=== PATIENT | male | born 1950 | race Caucasian/White ===

== ENCOUNTER → 2018-09-24 20:43 | Outpatient (CLI) | payer MEDICARE, OTHER, SELFPAY ==
[2018-09-23 17:20] VITALS: BMI 30.6
[2018-09-24 21:19] LABS: Cholesterol 190 mg/dL (200); High Density Lipoprotein 36 mg/dL; Triglycerides 204 mg/dL; Very Low Density Lipoprotein 41 mg/dL (5-40)
== END ==
PROVIDERS: Visit Provider Nurse Practitioner
DX: I10 Essential (primary) hypertension (principal); E03.9 Hypothyroidism, unspecified
CPT/HCPCS: 80061

== ENCOUNTER → 2019-06-23 15:12 | Outpatient (CLI) | payer MEDICARE, OTHER, SELFPAY ==
[2019-06-23 12:11] VITALS: BMI 30.3
[2019-06-23 16:29] LABS: BNP,B-Type NATRIURETIC PEPTIDE 17.4 pg/mL (0-100)
== END ==
PROVIDERS: Referring Provider Internal Medicine Cardiovascular Disease; Visit Provider Internal Medicine Cardiovascular Disease
DX: R06.00 Dyspnea, unspecified (principal)
CPT/HCPCS: 36415; 83880

== ENCOUNTER → 2019-07-09 12:21 | Outpatient (CLI) | payer MEDICARE, OTHER, SELFPAY ==
[2019-06-23 12:11] VITALS: BMI 30.3
--- NOTE | 2019-07-09 12:24 | ECHOD_ITS ---
Reason For Study: DYSPNEA Procedure This was a 2D Doppler, Color Flow transthoracic echocardiogram. Exam performed in department. Left Ventricle Normal LV size. Left ventricular systolic function is normal. The estimated ejection fraction is 55 %. Stage 1 diastolic dysfunction. No regional wall motion abnormalities noted. Right Ventricle Normal right ventricle. Normal systolic function. Atria Normal left atrium. Normal right atrium. Mitral Valve Normal mitral valve. Tricuspid Valve Normal tricuspid valve. Mild tricuspid valve insufficiency. Pulmonary artery systolic pressure is 26 mmHg. Aortic Valve Normal aortic valve. Trisinus/trileaflet aortic valve. Pulmonic Valve Normal pulmonic valve. Great Vessels Normal aortic root. The pulmonary artery is normal size. Normal inferior vena cava. Pericardium/Pleural No pericardial effusion. MMode/2D Measurements & Calculations LVIDd: 5.7 cm IVSd: 0.85 cm Ao root diam: 3.8 cm LVIDs: 3.3 cm LVPWd: 0.86 cm RVDd: 4.1 cm FS: 41.4 % LAV(MOD-bp): 58.9 ml LA A4 area: 20.7 cm2 LA dimension(2D): 4.1 cm LAV(MOD-bp) Indexed: 25.6 ml/m2 LAV(MOD-sp2): 57.3 ml LAV(MOD-sp4): 57.4 ml RA A4 area: 14.1 cm2 Time Measurements MV dec time: 0.32 sec Doppler Measurements & Calculations MV E max karlo: 61.0 cm/sec Lat Peak E' Karlo: 7.3 cm/sec Med Peak E' Karlo: 5.0 cm/sec MV A max karlo: 72.6 cm/sec E/E' lat: 8.4 E/E' med: 12.3 MV E/A: 0.84 Ao V2 max: 113.4 cm/sec LV V1 max: 95.8 cm/sec TR max karlo: 238.9 cm/sec Ao max P.1 mmHg LV V1 max P.7 mmHg TR max P.9 mmHg Interpretation Summary Normal LV size. Left ventricular systolic function is normal. The estimated ejection fraction is 55 %. Stage 1 diastolic dysfunction. Mild tricuspid valve insufficiency. Ordering Physician: Kendell Sparks Referring Physician: BRITTANIE ANDUJAR Performed By: Valerie Caldera, TOBY, RVT
== END ==
PROVIDERS: Referring Provider Internal Medicine Cardiovascular Disease; Visit Provider Internal Medicine Cardiovascular Disease
DX: R07.89 Other chest pain (principal); R06.02 Shortness of breath; R06.00 Dyspnea, unspecified
CPT/HCPCS: 93306

== ENCOUNTER → 2019-07-21 | Outpatient (CLI) | payer MEDICARE, OTHER, SELFPAY ==
[2019-07-21 06:06] VITALS: BMI 30.3
[2019-07-21 10:17] LABS: Absolute Lymphocyte Count 1.33 X10^3/uL (0.83-4.51); Absolute Neutrophil Count 2.1 X10^3/uL (2.0-7.7); Basophil# 0.03 X10^3/uL; Basophil% 0.7 % (0-1); Eosinophils% 4.9 % (0-5); Hematocrit 46.4 % (40-54); Hemoglobin 15.1 g/dL (13.0-16.5); Lymphocyte # 1.33 X10^3/ul (4.0); Lymphocyte % 32.4 % (19-41); Mean Corp Hgb Conc 32.5 g/dL (32-36); Mean Corpuscular Hgb 27.9 pg (27.0-32.0); Mean Corpuscular Volume 85.8 fL (80-94); Mean Platelet Vol. 9.1 fl (6.2-12.0); Monocyte# 0.47 X10^3/uL; Monocyte% 11.4 % (0-10); NRBC Flagged by Analyzer 0 % (0-5); Neutrophil # 2.08 X10^3/uL (2.7-7.7); Neutrophil % 50.6 % (47-70); Platelet Count 192 K/mm3 (150-450); RBC Distribution Width CV 14.1 % (11.6-14.6); Red Blood Count 5.41 M/mm3 (4.6-6.2); White Blood Count 4.1 K/mm3 (4.4-11.0)
[2019-07-24 04:06] LABS: Alternaria alternata 5.16 kU/L (Class IV); Bermuda Grass <0.10 kU/L (Class 0); Bluegrass, Kentucky 0.45 kU/L (Class I); Cat Hair/Dander, Standard 0.83 kU/L (Class II); D farinae Mite 0.26 kU/L (Class 0/I); D pteronyssinus 0.26 kU/L (Class 0/I); Dog Epithelia 0.11 kU/L (Class 0/I); Elm, American White <0.10 kU/L (Class 0); Oak, White <0.10 kU/L (Class 0); Plantain, English <0.10 kU/L (Class 0); Ragweed, Short/Common 0.16 kU/L (Class 0/I)
[2019-07-24 13:17] LABS: Mouse Urine 0.18 kU/L (Class 0/I)
[2019-07-24 20:07] LABS: Aspirgillus flavus Negative (Neg:<1:1); Aspirgillus fumigatus Negative (Neg:<1:1); Aspirgillus niger Negative (Neg:<1:1)
[2019-07-24 21:45] LABS: Immunoglobulin E 263 IU/mL (6-495)
== END | disposition home or self-care (01) ==
PROVIDERS: Referring Provider Internal Medicine Critical Care Medicine; Visit Provider Internal Medicine Critical Care Medicine
DX: J45.909 Unspecified asthma, uncomplicated (principal)
CPT/HCPCS: 36415; 82785; 85025; 86003; 86606

== ENCOUNTER → 2019-08-20 | Outpatient (CLI) | payer MEDICARE, OTHER, SELFPAY ==
[2019-07-21 06:06] VITALS: BMI 30.3
[2019-07-27 11:02] VITALS: BMI 30.9
--- NOTE | 2019-08-22 09:47 | PFT ---
INTRODUCTION: The patient is a 69-year-old male that presents for pulmonary function studies secondary to a diagnosis of asthma. Respiratory therapy reports good patient effort. Bronchodilators were used during testing. INTERPRETATION: Forced expiration spirometry demonstrates the presence of a moderately severe large airways obstructive ventilatory defect. There was a significant response to aerosolized bronchodilators. Spirograms are of good quality and plateau gradually indicating slow emptying of the lungs. Body plethysmography was performed and reveals a decreased TLC to 4.58 L, 63% of predicted, indicative of a moderate restrictive ventilatory impairment. The remainder of the lung volumes are symmetrically reduced. Diffusing capacity by single breath CO is within normal limits. IMPRESSION: Partially reversible moderately severe mixed ventilatory defect with preserved diffusing capacity.
== END | disposition home or self-care (01) ==
LOC: PSN 10:51
PROVIDERS: Referring Provider Internal Medicine Critical Care Medicine; Visit Provider Internal Medicine Critical Care Medicine
DX: J45.909 Unspecified asthma, uncomplicated (principal)
CPT/HCPCS: 94060; 94726; 94729

== ENCOUNTER → 2020-04-07 | Outpatient (CLI) | payer MEDICARE, OTHER, SELFPAY ==
[2020-04-07 15:07] VITALS: BMI 30.3
[2020-04-07 21:26] LABS: Absolute Lymphocyte Count 1.63 X10^3/uL (0.83-4.51); Absolute Neutrophil Count 3.1 X10^3/uL (2.0-7.7); Basophil# 0.06 X10^3/uL; Basophil% 1.1 % (0-1); Eosinophil# 0.22 X10^3/uL; Eosinophils% 3.9 % (0-5); Hematocrit 45.4 % (40-54); Hemoglobin 14.6 g/dL (13.0-16.5); Lymphocyte # 1.63 X10^3/ul (4.0); Lymphocyte % 29.3 % (19-41); Mean Corp Hgb Conc 32.2 g/dL (32-36); Mean Corpuscular Hgb 28.2 pg (27.0-32.0); Mean Corpuscular Volume 87.6 fL (80-94); Mean Platelet Vol. 9.6 fl (6.2-12.0); Monocyte# 0.57 X10^3/uL; Monocyte% 10.2 % (0-10); NRBC Flagged by Analyzer 0 % (0-5); Neutrophil # 3.09 X10^3/uL (2.7-7.7); Neutrophil % 55.5 % (47-70); Platelet Count 226 K/mm3 (150-450); RBC Distribution Width CV 13.8 % (11.6-14.6); RBC Distribution Width SD 44.4 fl (35.1-43.9); Red Blood Count 5.18 M/mm3 (4.6-6.2); White Blood Count 5.6 K/mm3 (4.4-11.0)
[2020-04-07 21:49] LABS: ALB/GLOB Ratio 1.1 RATIO (0.9-2.4); AST(SGOT) 30 U/L (15-37); Alanine Aminotransfer ALT/SGPT 28 U/L (16-61); Albumin, Serum 3.9 g/dL (3.2-5.0); Alkaline Phosphatase 94 U/L (45-117); Anion Gap 6 (5-15); BUN 21 mg/dL (7-18); Calcium,Total 9.3 mg/dL (8.5-10.1); Chloride 106 mmol/L (98-107); Cholesterol 215 mg/dL (200); EST Glomerular Filtration Rate 53 mL/min (>60); Est Glom Filt Rate - Afr Amer 65 mL/min (>60); Globulin 3.6 g/dL (2.2-4.2); Glucose 96 mg/dL (74-106); High Density Lipoprotein 49 mg/dL; Potassium 3.9 mmol/L (3.5-5.1); Protein, Total 7.5 g/dL (6.4-8.2); Sodium Level 140 mmol/L (136-145); Triglycerides 172 mg/dL; Very Low Density Lipoprotein 34 mg/dL (5-40)
== END | disposition home or self-care (01) ==
PROVIDERS: Referring Provider Nurse Practitioner; Visit Provider Nurse Practitioner
DX: I10 Essential (primary) hypertension (principal); N42.9 Disorder of prostate, unspecified; Z12.5 Encounter for screening for malignant neoplasm of prostate
CPT/HCPCS: 80053; 80061; 84153; 85025; G0103

== ENCOUNTER → 2020-05-25 | Outpatient (CLI) | payer MEDICARE, OTHER, SELFPAY ==
[2020-05-30 09:08] LABS: PSA, Free % 20.6 % (.); PSA, Total Ultrasensitive 10.7 ng/mL (0.0-4.0)
== END | disposition home or self-care (01) ==
PROVIDERS: PCP Nurse Practitioner; Referring Provider Nurse Practitioner; Visit Provider Nurse Practitioner
DX: N42.9 Disorder of prostate, unspecified (principal); R97.20 Elevated prostate specific antigen [PSA]
CPT/HCPCS: 84153; 84154; 87086

== ENCOUNTER → 2020-08-16 | Outpatient (CLI) | payer MEDICARE, OTHER, SELFPAY ==
[2020-08-18 15:47] LABS: PSA, Free 2.12 ng/mL; PSA, Free % 19.4 % (.); PSA, Total Ultrasensitive 10.9 ng/mL (0.0-4.0)
== END | disposition home or self-care (01) ==
PROVIDERS: PCP Nurse Practitioner; Referring Provider Nurse Practitioner; Visit Provider Nurse Practitioner
DX: N42.9 Disorder of prostate, unspecified (principal)
CPT/HCPCS: 84153; 84154

== ENCOUNTER → 2020-09-29 | Outpatient (CLI) | payer MEDICARE, OTHER, SELFPAY ==
[2020-08-16 12:43] VITALS: BMI 30.7
--- NOTE | 2020-09-29 | IMM_PTH ---
PATIENT: REBEL BURT Sr. LOC: [facility] U#:[id number] AGE/SX: 70/M ROOM: RE09/29/[address]: Dr. Will Olguin MD : 1950 BED: DIS: 09/29/2020 SPEC #: [id number] RECD: 10/03/20 12:54 STATUS: TOYIN REQ #: [id number] TACO: 09/29/20 00:[address]: Will Olguin DEPT: IMMUNOHISTOCHEMISTRY RECD BY: Kate García ENTERED: 10/03/20 12:56 SP TYPE: IMMUNO OTHR DR: Marlene Mathur, CRITICAL CARE UNIT MANAGER-C Tissues: C - PROSTATE RIGHT E - PROSTATE LEFT F - PROSTATE LEFT Procedures: 34BE12 (add) P40 (add) 34BE12 (initial) PHYSICIAN & INSTITUTION [place] [id number] SPECIMEN INFORMATION: Tissue Source: C - Right base, E - Left mid, F - Left base Clinical Info: R97.2 Specimen Number: [id number] C, E & F CPT code: 10036, 71730 x5 METHODOLOGY: Deparaffinized sections of prefer/formalin-fixed tissue or PAP/DQ stained slides are incubated with monoclonal/polyclonal antibodies/oligonucleotide probes. Localization is made via biotin free immunoperoxidase method. Appropriate controls are performed and reacted as expected. Results on target cell population are indicated in the following table: RESULTS: ANTIBODY / CLONE RESULT Block C 34BE12 (34BE12) positive P40 (BC28) positive Block E 34BE12 (34BE12) positive P40 (BC28) positive Block F 34BE12 (34BE12) positive P40 (BC28) positive These tests were developed and their performance characteristics determined by [facility]. They may not have been cleared or approved by the U.S. Food and Drug Administration. The FDA has determined that such clearance or approval is not necessary. The above immunohistochemical/dualISH markers are ordered and reviewed by the Pathologist. INTERPRETATION: C. Right prostate, base, core biopsy: Benign prostatic tissue. E. Left prostate, mid, core biopsy: Benign prostatic tissue. F. Left prostate, base, core biopsy: Benign prostatic tissue. AM:tawanna 10/04/2020
--- NOTE | 2020-09-29 08:00 | PROSBIL_PTH ---
PATIENT: [facility]BEL [facility]UR[facility] U[id number] AGE/SX: 70/M ROOM: RE09/29/[address]: Dr. Will Olguin MD : 1950 BED: DIS: 09/29/2020 SPEC #: [id number] RECD: 09/29/20 16:53 STATUS: TOYIN REMarita #: [id number] TACO: 09/29/20 08:[address]: Will Olguin DEPT: SURGICAL PATHOLOGY RECD BY: Keshia Rust ENTERED: 09/30/20 08:34 SP TYPE: PROST BX TONY DR: Marlene Mathur, SOFTBALL COACH-C Tissues: A - PROSTATE RIGHT B - PROSTATE RIGHT C - PROSTATE RIGHT D - PROSTATE LEFT E - PROSTATE LEFT F - PROSTATE LEFT Procedures: PROSTATE BX HEADER OPERATION: Prostate biopsy PRE-OP DIAGNOSIS: R97.2 TISSUE SUBMITTED: A - Right apex, B - Right mid, C - Right base, D - Left apex, E - Left mid, F - Left base MICROSCOPIC DIAGNOSIS A. Right prostate, apex, core biopsy: Mild chronic inflammation and glandular atrophy. B. Right prostate, mid, core biopsy: Glandular atrophy and minimal chronic inflammation. C. Right prostate, base, core biopsy: Glandular atrophy and mild chronic inflammation. See comment. D. Left prostate, apex, core biopsy: Focal glandular atrophy. Mild chronic inflammation. E. Left prostate, mid, core biopsy: Glandular atrophy and mild chronic inflammation. See comment. F. Left prostate, base, core biopsy: Glandular atrophy and minimal chronic inflammation. See comment. SJ:rg 10/03/2020 COMMENT C, E & F - Immunohistochemistry ([id number]) supports the above diagnosis. MICROSCOPIC DESCRIPTION Slides are reviewed. GROSS DESCRIPTION A - Received is one container designated prostate, right apex. The specimen consists of two elongated fragments of light higuera-white soft tissue measuring 0.7 and 1 cm in length and 0.1 cm in diameter. The specimen is totally submitted in one cassette. B - Received is one container designated prostate, right mid. The specimen consists of three elongated fragments of light higuera-white soft tissue measuring 0.5 to 1 cm in length and 0.1 cm in diameter. The specimen is totally submitted in one cassette. C - Received is one container designated prostate, right base. The specimen consists of two elongated fragments of light higuera-white soft tissue measuring 1 and 1.5 cm in length and 0.1 cm in diameter. The specimen is totally submitted in one cassette. D - Received is one container designated prostate, left apex. The specimen consists of two elongated fragments of light higuera-white soft tissue each measuring 1.5 cm in length and 0.1 cm in diameter. The specimen is totally submitted in one cassette. E - Received is one container designated prostate, left mid. The specimen consists of two elongated fragments of light higuera-white soft tissue each measuring 1.5 cm in length and 0.1 cm in diameter. The specimen is totally submitted in one cassette. F - Received is one container designated prostate, left base. The specimen consists of two elongated fragments of light higuera-white soft tissue measuring 1.2 and 1.5 cm in length and 0.1 cm in diameter. The specimen is totally submitted in one cassette. / SJ:rg 09/30/20 TC:4 CPT: G0146
== END | disposition home or self-care (01) ==
LOC: LABSPEC 09-30 08:23
PROVIDERS: PCP Nurse Practitioner; Referring Provider Urology; Visit Provider Urology
DX: R97.20 Elevated prostate specific antigen [PSA] (principal)
CPT/HCPCS: 88305; 88341; 88342; G0416

== ENCOUNTER → 2021-04-03 | Outpatient (CLI) | payer MEDICARE, OTHER, SELFPAY ==
[2021-04-03 22:20] LABS: Absolute Lymphocyte Count 1.64 X10^3/uL (0.83-4.51); Absolute Neutrophil Count 3.5 X10^3/uL (2.0-7.7); Basophil# 0.04 X10^3/uL; Basophil% 0.7 % (0-1); Eosinophil# 0.18 X10^3/uL; Hematocrit 44.1 % (40-54); Hemoglobin 14.6 g/dL (13.0-16.5); Lymphocyte # 1.64 X10^3/ul (0.83-4.51); Lymphocyte % 27.7 % (19-41); Mean Corp Hgb Conc 33.1 g/dL (32-36); Mean Corpuscular Hgb 28.5 pg (27.0-32.0); Mean Corpuscular Volume 86.1 fL (80-94); Mean Platelet Vol. 9.8 fl (6.2-12.0); Monocyte# 0.59 X10^3/uL; Monocyte% 9.9 % (0-10); NRBC Flagged by Analyzer 0 % (0-5); Neutrophil # 3.47 X10^3/uL (2.7-7.7); Neutrophil % 58.5 % (47-70); Platelet Count 212 K/mm3 (150-450); RBC Distribution Width CV 14.6 % (11.6-14.6); RBC Distribution Width SD 46.2 fl (35.1-43.9); Red Blood Count 5.12 M/mm3 (4.6-6.2); White Blood Count 5.9 K/mm3 (4.4-11.0)
[2021-04-03 22:21] LABS: ALB/GLOB Ratio 1.1 RATIO (0.9-2.4); AST(SGOT) 27 U/L (15-37); Alanine Aminotransfer ALT/SGPT 24 U/L (16-61); Albumin, Serum 3.9 g/dL (3.2-5.0); Alkaline Phosphatase 82 U/L (45-117); Anion Gap 9 (5-15); BUN 21 mg/dL (7-18); BUN/Creat Ratio 14.6 RATIO (10-20); Calcium,Total 9.3 mg/dL (8.5-10.1); Chloride 107 mmol/L (98-107); Cholesterol 224 mg/dL (200); Creatinine, Serum 1.44 mg/dL (0.70-1.30); EST Glomerular Filtration Rate 52 mL/min (>60); Est Glom Filt Rate - Afr Amer 62 mL/min (>60); Globulin 3.7 g/dL (2.2-4.2); Glucose 95 mg/dL (74-106); High Density Lipoprotein 49 mg/dL; Potassium 3.8 mmol/L (3.5-5.1); Protein, Total 7.6 g/dL (6.4-8.2); Sodium Level 140 mmol/L (136-145); Triglycerides 116 mg/dL; Very Low Density Lipoprotein 23 mg/dL (5-40)
[2021-04-04 12:04] LABS: Thyroid Stim Hormone (TSH) 2.77 uIU/mL (0.358-3.74)
[2021-04-05 15:42] LABS: PSA, Free 2.38 ng/mL; PSA, Free % 20.5 % (.); PSA, Total Ultrasensitive 11.6 ng/mL (0.0-4.0)
== END | disposition home or self-care (01) ==
PROVIDERS: PCP Nurse Practitioner; Visit Provider Nurse Practitioner
DX: J45.50 Severe persistent asthma, uncomplicated (principal); I10 Essential (primary) hypertension; N42.9 Disorder of prostate, unspecified; E03.9 Hypothyroidism, unspecified
CPT/HCPCS: 80053; 80061; 84153; 84154; 84443; 85025

== ENCOUNTER → 2022-05-22 | Outpatient (CLI) | payer MEDICARE, OTHER, SELFPAY ==
[2022-05-22 22:01] LABS: Absolute Lymphocyte Count 1.34 X10^3/uL (0.83-4.51); Absolute Neutrophil Count 3.5 X10^3/uL (2.0-7.7); Basophil# 0.05 X10^3/uL; Basophil% 0.9 % (0-1); Eosinophil# 0.18 X10^3/uL; Eosinophils% 3.3 % (0-5); Hematocrit 43.4 % (40-54); Hemoglobin 14.5 g/dL (13.0-16.5); Lymphocyte # 1.34 X10^3/ul (0.83-4.51); Lymphocyte % 24.4 % (19-41); Mean Corp Hgb Conc 33.4 g/dL (32-36); Mean Corpuscular Hgb 28.5 pg (27.0-32.0); Mean Corpuscular Volume 85.4 fL (80-94); Mean Platelet Vol. 9.6 fl (6.2-12.0); Monocyte# 0.43 X10^3/uL; Monocyte% 7.8 % (0-10); NRBC Flagged by Analyzer 0 % (0-5); Neutrophil # 3.48 X10^3/uL (2.7-7.7); Neutrophil % 63.4 % (47-70); Platelet Count 213 K/mm3 (150-450); RBC Distribution Width CV 14.3 % (11.6-14.6); RBC Distribution Width SD 44.7 fl (35.1-43.9); Red Blood Count 5.08 M/mm3 (4.6-6.2); White Blood Count 5.5 K/mm3 (4.4-11.0)
[2022-05-22 22:21] LABS: AST(SGOT) 25 U/L (15-37); Alanine Aminotransfer ALT/SGPT 25 U/L (16-61); Albumin, Serum 3.7 g/dL (3.2-5.0); Alkaline Phosphatase 88 U/L (45-117); Anion Gap 9 (5-15); BUN 21 mg/dL (7-18); BUN/Creat Ratio 14.9 RATIO (10-20); Chloride 104 mmol/L (98-107); Cholesterol 217 mg/dL (200); Creatinine, Serum 1.41 mg/dL (0.70-1.30); EST Glomerular Filtration Rate 53 mL/min (>60); Est Glom Filt Rate - Afr Amer 64 mL/min (>60); Globulin 3.6 g/dL (2.2-4.2); Glucose 125 mg/dL (74-106); High Density Lipoprotein 51 mg/dL; Potassium 3.7 mmol/L (3.5-5.1); Protein, Total 7.3 g/dL (6.4-8.2); Sodium Level 138 mmol/L (136-145); Thyroid Stim Hormone (TSH) 2.95 uIU/mL (0.358-3.74); Triglycerides 132 mg/dL; Very Low Density Lipoprotein 26 mg/dL (5-40)
== END | disposition home or self-care (01) ==
PROVIDERS: PCP Nurse Practitioner; Visit Provider Nurse Practitioner
DX: I10 Essential (primary) hypertension (principal); E07.9 Disorder of thyroid, unspecified; E78.5 Hyperlipidemia, unspecified; J45.50 Severe persistent asthma, uncomplicated; N42.9 Disorder of prostate, unspecified; Z12.5 Encounter for screening for malignant neoplasm of prostate
CPT/HCPCS: 80053; 80061; 84153; 84443; 85025; G0103

== ENCOUNTER → 2022-08-07 | Outpatient (CLI) | payer MEDICARE, OTHER, SELFPAY ==
[2022-08-07 22:24] LABS: Absolute Lymphocyte Count 1.56 X10^3/uL (0.83-4.51); Absolute Neutrophil Count 3.1 X10^3/uL (2.0-7.7); Basophil# 0.04 X10^3/uL; Basophil% 0.7 % (0-1); Eosinophil# 0.24 X10^3/uL; Eosinophils% 4.4 % (0-5); Hematocrit 45.2 % (40-54); Hemoglobin 14.8 g/dL (13.0-16.5); Lymphocyte # 1.56 X10^3/ul (0.83-4.51); Lymphocyte % 28.7 % (19-41); Mean Corp Hgb Conc 32.7 g/dL (32-36); Mean Corpuscular Hgb 28.1 pg (27.0-32.0); Mean Corpuscular Volume 85.8 fL (80-94); Mean Platelet Vol. 9.3 fl (6.2-12.0); Monocyte# 0.52 X10^3/uL; Monocyte% 9.6 % (0-10); NRBC Flagged by Analyzer 0 % (0-5); Neutrophil # 3.07 X10^3/uL (2.7-7.7); Neutrophil % 56.4 % (47-70); Platelet Count 205 K/mm3 (150-450); RBC Distribution Width CV 14.6 % (11.6-14.6); Red Blood Count 5.27 M/mm3 (4.6-6.2); White Blood Count 5.4 K/mm3 (4.4-11.0)
[2022-08-07 22:44] LABS: ALB/GLOB Ratio 1.2 RATIO (0.9-2.4); AST(SGOT) 30 U/L (15-37); Alanine Aminotransfer ALT/SGPT 27 U/L (16-61); Albumin, Serum 4.2 g/dL (3.2-5.0); Alkaline Phosphatase 90 U/L (45-117); Anion Gap 7 (5-15); BUN 22 mg/dL (7-18); BUN/Creat Ratio 15.6 RATIO (10-20); Calcium,Total 9.7 mg/dL (8.5-10.1); Chloride 102 mmol/L (98-107); Cholesterol 238 mg/dL (200); Creatinine, Serum 1.41 mg/dL (0.70-1.30); EST Glomerular Filtration Rate 53 mL/min (>60); Est Glom Filt Rate - Afr Amer 64 mL/min (>60); Globulin 3.5 g/dL (2.2-4.2); Glucose 110 mg/dL (74-106); High Density Lipoprotein 53 mg/dL; Potassium 3.8 mmol/L (3.5-5.1); Protein, Total 7.7 g/dL (6.4-8.2); Rheumatoid Factor < 10.0 IU/mL (<15); Sodium Level 138 mmol/L (136-145); Triglycerides 143 mg/dL; Very Low Density Lipoprotein 29 mg/dL (5-40)
[2022-08-09 15:08] LABS: Anti-Centromere B Ab <0.2 AI (0.0-0.9); Anti-Chromatin <0.2 AI (0.0-0.9); Anti-Jo <0.2 AI (0.0-0.9); Anti-Scleroderma-70 AB <0.2 AI (0.0-0.9); RNP Ab 0.2 AI (0.0-0.9); SJOGREN'S Anti-SS-A test < 0.2 AI (0.0-0.9); SJOGREN'S Anti-SS-B test < 0.2 AI (0.0-0.9); Smith Ab <0.2 AI (0.0-0.9)
[2022-08-10 18:50] LABS: Anti-dsDNA Ab 1 IU/mL (0-9)
== END | disposition home or self-care (01) ==
PROVIDERS: PCP Nurse Practitioner; Visit Provider Nurse Practitioner
DX: E78.5 Hyperlipidemia, unspecified (principal); E53.9 Vitamin B deficiency, unspecified; E03.9 Hypothyroidism, unspecified; M15.9 Polyosteoarthritis, unspecified; N40.0 Benign prostatic hyperplasia without lower urinary tract symptoms
CPT/HCPCS: 80053; 80061; 84153; 85025; 86225; 86235; 86431

== ENCOUNTER → 2022-09-18 | Outpatient (CLI) | payer MEDICARE, OTHER, SELFPAY ==
--- NOTE | 2022-09-18 15:21 | MRI_ITS ---
STUDY: MR PELVIS WITH AND WITHOUT CONTRAST (PROSTATE); 3D POST PROCESSING REASON FOR EXAM: Male, 72 years old. Elevated PSA TECHNIQUE: Standardized multiparametric prostate MRI with T1, T2, DWI/ADC sequences were obtained in 3 orthogonal planes, and dynamic contrast enhancement sequences. ml of 21ml clariscan contrast material was administered intravenously for the contrast portion of the examination. . 3D post processing was performed on an independent workstation (bitFlyer) for purposes of volumetric evaluation of the prostate gland and localization of below described nodule, which was marked on reconstructed images for anticipated image guided biopsy by Urology service. COMPARISON: None. FINDINGS: The prostate volume measures 144 mm3. The contours of the prostate gland are lobulated. There is mass effect on the bladder base. The transition zone is heterogenous. PI-RADS DWI score 1 - No abnormality (normal) on ADC or high b-value DWI. PI-RADS T2W score 2 - A mostly encapsulated nodule OR a homogeneous circumscribed nodule without encapsulation (atypical nodule) or a homogeneous mildly hypointense area between nodules.. Contrast enhancement no early or contemporaneous enhancement; or diffuse multifocal enhancement NOT corresponding to a focal finding on T2W and/or DWI or focal ehancement responding to a lesion demonstrating features of BPH onT2WI (including features of extruded BPH in the PZ). The peripheral zone is heterogenous. PI-RADS DWI score 1 - No abnormality (normal) on ADC or high b-value DWI. PI-RADS T2W score 2 - Linear, wedge-shaped, or diffuse mild hypointensity, usually with indistinct margin. Contrast enhancement no early or contemporaneous enhancement; or diffuse multifocal enhancement NOT corresponding to a focal finding on T2W and/or DWI or focal enhancement responding to a lesion demonstrating features of BPH onT2WI (including features of extruded BPH in the PZ). The seminal vesicles demonstrate normal margins and T2 signal pattern. No mass lesion or invasion depicted. The rectoprostatic angles are normal. Urinary bladder is normal without wall thickening. The vascular structures of the are normal. The visualized hollow viscus structures are normal. Small fat-containing inguinal hernias. No bone marrow edema or mass lesion depicted. MRI/Pelvis W/WO Contrast IMPRESSION: 1. PIRADS v2.1 2019 -- 2 - Low (clinically significant cancer is unlikely). 2. Prostatomegaly with benign prostatic hypertrophy. Electronically Signed: Willian Cook (Brooks), at 8:34 EDT Reading Location ID and State: [place] , Service support ,
[2022-09-19 08:40] LABS: CREATININE FINGERSTICK 1.2 mg/dL (0.70-1.30); EGFR FINGERSTICK > 60.0000 mL/min (>60)
== END | disposition home or self-care (01) ==
LOC: MRI 15:19
PROVIDERS: PCP Nurse Practitioner; Referring Provider Urology; Visit Provider Urology
DX: R97.20 Elevated prostate specific antigen [PSA] (principal)
CPT/HCPCS: 72197; A9575

== ENCOUNTER → 2023-03-12 | Outpatient (CLI) | payer MEDICARE, OTHER, SELFPAY ==
[2023-03-12 21:03] LABS: Absolute Lymphocyte Count 1.32 X10^3/uL (0.83-4.51); Absolute Neutrophil Count 4.8 X10^3/uL (2.0-7.7); Basophil# 0.04 X10^3/uL; Basophil% 0.6 % (0-1); Eosinophil# 0.11 X10^3/uL; Eosinophils% 1.6 % (0-5); Hematocrit 42.8 % (40-54); Hemoglobin 13.8 g/dL (13.0-16.5); Lymphocyte # 1.32 X10^3/ul (0.83-4.51); Lymphocyte % 19.6 % (19-41); Mean Corp Hgb Conc 32.2 g/dL (32-36); Mean Corpuscular Hgb 28.2 pg (27.0-32.0); Mean Corpuscular Volume 87.5 fL (80-94); Mean Platelet Vol. 9.6 fl (6.2-12.0); Monocyte# 0.47 X10^3/uL; NRBC Flagged by Analyzer 0 % (0-5); Neutrophil # 4.79 X10^3/uL (2.7-7.7); Neutrophil % 71.1 % (47-70); Platelet Count 222 K/mm3 (150-450); RBC Distribution Width CV 14.3 % (11.6-14.6); RBC Distribution Width SD 46.2 fl (35.1-43.9); Red Blood Count 4.89 M/mm3 (4.6-6.2); White Blood Count 6.7 K/mm3 (4.4-11.0)
[2023-03-12 21:15] LABS: Vitamin B12 340 pg/mL (211-911)
[2023-03-12 21:22] LABS: ALB/GLOB Ratio 1.1 RATIO (0.9-2.4); AST(SGOT) 29 U/L (15-37); Alanine Aminotransfer ALT/SGPT 32 U/L (16-61); Albumin, Serum 3.9 g/dL (3.2-5.0); Alkaline Phosphatase 95 U/L (45-117); Anion Gap 6 (5-15); BUN 22 mg/dL (7-18); BUN/Creat Ratio 17.2 RATIO (10-20); Calcium,Total 9.1 mg/dL (8.5-10.1); Chloride 105 mmol/L (98-107); Cholesterol 223 mg/dL (200); Creatinine, Serum 1.28 mg/dL (0.70-1.30); EST Glomerular Filtration Rate 59 mL/min (>60); Est Glom Filt Rate - Afr Amer 71 mL/min (>60); Globulin 3.5 g/dL (2.2-4.2); Glucose 148 mg/dL (74-106); High Density Lipoprotein 56 mg/dL; Potassium 3.6 mmol/L (3.5-5.1); Protein, Total 7.4 g/dL (6.4-8.2); Sodium Level 137 mmol/L (136-145); Thyroid Stim Hormone (TSH) 2.73 uIU/mL (0.358-3.74); Triglycerides 153 mg/dL; Very Low Density Lipoprotein 31 mg/dL (5-40)
[2023-03-15 12:08] LABS: Vitamin D 1,25-Dihydroxy 63.1 pg/mL (24.8-81.5)
== END | disposition home or self-care (01) ==
PROVIDERS: PCP Nurse Practitioner; Visit Provider Nurse Practitioner
DX: N40.0 Benign prostatic hyperplasia without lower urinary tract symptoms (principal); E53.9 Vitamin B deficiency, unspecified; J45.909 Unspecified asthma, uncomplicated; I10 Essential (primary) hypertension; E78.5 Hyperlipidemia, unspecified; E03.9 Hypothyroidism, unspecified
CPT/HCPCS: 80053; 80061; 82607; 82652; 84153; 84443; 85025

== ENCOUNTER → 2024-05-11 | Outpatient (CLI) | payer MEDICARE, OTHER, SELFPAY ==
[2024-05-11 22:14] LABS: Absolute Lymphocyte Count 1.71 X10^3/uL (0.83-4.51); Absolute Neutrophil Count 2.8 X10^3/uL (2.0-7.7); Basophil# 0.05 X10^3/uL; Basophil% 0.9 % (0-1); Eosinophil# 0.25 X10^3/uL; Eosinophils% 4.7 % (0-5); Hematocrit 41.7 % (40-54); Hemoglobin 13.7 g/dL (13.0-16.5); Lymphocyte # 1.71 X10^3/ul (0.83-4.51); Lymphocyte % 32.1 % (19-41); Mean Corp Hgb Conc 32.9 g/dL (32-36); Mean Corpuscular Hgb 28.5 pg (27.0-32.0); Mean Corpuscular Volume 86.7 fL (80-94); Mean Platelet Vol. 9.3 fl (6.2-12.0); Monocyte% 9.4 % (0-10); NRBC Flagged by Analyzer 0 % (0-5); Neutrophil % 52.7 % (47-70); Platelet Count 210 K/mm3 (150-450); RBC Distribution Width CV 14.4 % (11.6-14.6); RBC Distribution Width SD 45.9 fl (35.1-43.9); Red Blood Count 4.81 M/mm3 (4.6-6.2); White Blood Count 5.3 K/mm3 (4.4-11.0)
[2024-05-11 22:30] LABS: Vitamin B12 358 pg/mL (211-911)
[2024-05-11 22:35] LABS: ALB/GLOB Ratio 1.2 RATIO (0.9-2.4); AST(SGOT) 27 U/L (15-37); Alanine Aminotransfer ALT/SGPT 21 U/L (16-61); Albumin, Serum 3.8 g/dL (3.2-5.0); Alkaline Phosphatase 89 U/L (45-117); Anion Gap 5 (5-15); BUN 23 mg/dL (7-18); BUN/Creat Ratio 19.5 RATIO (10-20); Calcium,Total 9.1 mg/dL (8.5-10.1); Chloride 109 mmol/L (98-107); Cholesterol 232 mg/dL (200); Creatinine, Serum 1.18 mg/dL (0.70-1.30); EST Glomerular Filtration Rate 64 mL/min (>60); Est Glom Filt Rate - Afr Amer 78 mL/min (>60); Globulin 3.3 g/dL (2.2-4.2); Glucose 91 mg/dL (74-106); High Density Lipoprotein 64 mg/dL; Magnesium 2.1 mg/dL (1.6-2.6); Potassium 3.6 mmol/L (3.5-5.1); Protein, Total 7.1 g/dL (6.4-8.2); Sodium Level 139 mmol/L (136-145); Triglycerides 122 mg/dL; Very Low Density Lipoprotein 24 mg/dL (5-40)
[2024-05-14 12:10] LABS: Vitamin D 1,25-Dihydroxy 50.2 pg/mL (24.8-81.5)
== END | disposition home or self-care (01) ==
PROVIDERS: PCP Nurse Practitioner; Referring Provider Nurse Practitioner; Visit Provider Nurse Practitioner
DX: I10 Essential (primary) hypertension (principal); J45.50 Severe persistent asthma, uncomplicated; E53.9 Vitamin B deficiency, unspecified; N40.0 Benign prostatic hyperplasia without lower urinary tract symptoms; N41.1 Chronic prostatitis; E03.9 Hypothyroidism, unspecified; E55.9 Vitamin D deficiency, unspecified
CPT/HCPCS: 80053; 80061; 82607; 82652; 83735; 84153; 84403; 84443; 85025

== ENCOUNTER → 2024-06-22 | Outpatient (CLI) | payer MEDICARE, OTHER, SELFPAY ==
--- NOTE | 2024-06-22 08:06 | EKG12_ITS ---
Test Reason : PRE OP Blood Pressure : */* mmHG Vent. Rate : 72 BPM Atrial Rate : 72 BPM P-R Int : 170 ms QRS Dur : 100 ms QT Int : 382 ms P-R-T Axes : 55 38 48 degrees QTcB Int : 418 ms Normal sinus rhythm Normal ECG Confirmed by MINDA BLACKMAN, AJAY ([id number]), editorial manager MICHELE LEONARDO ([id number]) on 06/22/2024 10:08:45 AM Referred By: Thomas Garcia Confirmed By: AJAY PERLA MD
--- NOTE | 2024-06-22 08:07 | CT_ITS ---
CT LEFT LOWER EXTREMITY WITH 3-D IMAGING CLINICAL INDICATION: OSTEOARTHRITIS-LEFT DONALD KNEE TECHNIQUE: Axial CT images of the LEFT lower extremity was performed IV contrast material. Coronal and sagittal reformats were provided. The protocol utilizes one or more of the following dose reduction techniques: automated exposure control, adjustment of mA and/or kV according to patient size,and/or use of iterative reconstruction technique. RADIATION DOSAGE (If Supplied By Facility): CTDIvol = ( 18.76 ) mGy, DLP = ( 1384.6 ) mGycm COMPARISON: FINDINGS: Bones: Osseous structures are normal without evidence of fracture or dislocation. No lytic or blastic osseous masses. Mild left hip arthrosis. Severe knee arthrosis with joint space narrowing, osteophyte formation, large subchondral cyst formation of the posterior medial tibial plateau, and a large joint effusion. Soft Tissues: The deep soft tissue structures are unremarkable. The superficial soft tissues are unremarkable without evidence of edema, hematoma, or foreign body. CT/Extremity Lower without Contra IMPRESSION: Severe knee arthrosis with joint effusion. Electronically Signed: Ronn Jefferson MD at 18:33 EST ,
--- NOTE | 2024-06-22 08:20 | RAD_ITS ---
STUDY: X-RAY CHEST REASON FOR EXAM: Male, 74 years old. PRE OP TECHNIQUE: PA and lateral views of the chest. COMPARISON: None. FINDINGS: The lungs are clear and expanded. There is no demonstrated pleural abnormality. Normal size heart. Normal mediastinum and lv. Normal visualized pulmonary arteries. Normal visualized aortic arch and descending thoracic aorta. Normal visualized thoracic spine. Normal visualized ribs, clavicles, and shoulders. There is no demonstrated abnormality of the visualized soft tissue structures of the upper abdomen. RAD/Chest PA and Lateral IMPRESSION: Normal x-ray examination of the chest. Electronically Signed: Ronn Jefferson MD at 18:20 [facility] ,
[2024-06-22 09:23] LABS: Absolute Lymphocyte Count 1.57 X10^3/uL (0.83-4.51); Absolute Neutrophil Count 3.2 X10^3/uL (2.0-7.7); Basophil# 0.05 X10^3/uL; Basophil% 0.9 % (0-1); Eosinophil# 0.27 X10^3/uL; Eosinophils% 4.8 % (0-5); Hematocrit 43.8 % (40-54); Hemoglobin 14.1 g/dL (13.0-16.5); Lymphocyte # 1.57 X10^3/ul (0.83-4.51); Lymphocyte % 27.6 % (19-41); Mean Corp Hgb Conc 32.2 g/dL (32-36); Mean Corpuscular Hgb 28.2 pg (27.0-32.0); Mean Corpuscular Volume 87.6 fL (80-94); Mean Platelet Vol. 8.9 fl (6.2-12.0); Monocyte% 10.6 % (0-10); NRBC Flagged by Analyzer 0 % (0-5); Neutrophil # 3.18 X10^3/uL (2.7-7.7); Neutrophil % 55.9 % (47-70); Platelet Count 203 K/mm3 (150-450); RBC Distribution Width CV 14.2 % (11.6-14.6); White Blood Count 5.7 K/mm3 (4.4-11.0)
[2024-06-22 09:50] LABS: Anion Gap 6 (5-15); BUN 26 mg/dL (7-18); BUN/Creat Ratio 18.4 RATIO (10-20); Calcium,Total 9.8 mg/dL (8.5-10.1); Chloride 106 mmol/L (98-107); Creatinine, Serum 1.41 mg/dL (0.70-1.30); EST Glomerular Filtration Rate 52 mL/min (>60); Est Glom Filt Rate - Afr Amer 63 mL/min (>60); Glucose 67 mg/dL (74-106); Potassium 3.6 mmol/L (3.5-5.1); Sodium Level 141 mmol/L (136-145)
== END | disposition home or self-care (01) ==
LOC: PSN 08:00
PROVIDERS: PCP Nurse Practitioner; Referring Provider Specialist; Visit Provider Specialist
DX: Z01.810 Encounter for preprocedural cardiovascular examination (principal); M17.12 Unilateral primary osteoarthritis, left knee; M21.162 Varus deformity, not elsewhere classified, left knee
CPT/HCPCS: 36415; 71046; 73700; 80048; 82040; 85025; 87081; 93005

== ENCOUNTER 2024-07-16 16:01 | Emergency (ER) | payer MEDICARE, OTHER, SELFPAY ==
[2024-07-16 16:02] VITALS: BP 152/79; PULSE 81; RESP 15; TEMP 35.6; O2SAT 97
--- NOTE | 2024-07-16 16:21 | EDS_ITS ---
HPI <RAHEL Lopez - Last Filed: 07/16/24 17:08> History of Present Illness Chief Complaint: Complaint Narrative Narrative: Patient 74-year-old male with history of thyroid disease, hyperlipidemia, hypertension, asthma who recently had a left knee replaced today. Patient after the surgery could not go home secondary to being unable to pee. Multiple attempts were done at the surgery center for a Sands catheter however they could not get past the prostate. There is now some bleeding from the penile meatus. They spoke to urology who referred him to the emergency department. [facility] <RAHEL Lopez - Last Filed: 07/16/24 17:08> [facility] Medical History Essential (primary) hypertension Bilateral hearing loss due to cerumen impaction Wheezing Acute asthma Hypothyroidism (acquired) Thyroid disease Skin cancer Prostate disease HTN (hypertension) Hearing problem Seasonal allergies Home Medications ?Medication ?Instructions ?Recorded ?Last Taken ?Type aspirin 325 mg tablet 325 mg PO QDAY 10/31/17 Unknown History nebulizer tubing and mouth piece #2 ea 04/03/21 Unknown Rx albuterol sulfate 2.5 mg/3 mL 2.5 mg (3 mL) inhalation Q4H PRN 05/11/24 Unknown Rx (0.083 %) solution for nebulization shortness of breath or wheezing #180 mL albuterol sulfate 90 mcg/actuation 2 puff inhalation Q4H PRN 05/11/24 Unknown Rx aerosol inhaler (Ventolin HFA) shortness of breath or wheezing #3 ea amlodipine 10 mg tablet 10 mg PO QDAY #90 tabs 05/11/24 Unknown Rx ciprofloxacin HCl 500 mg tablet 500 mg PO BID prostatitis #28 tabs 05/11/24 Unknown Rx finasteride 5 mg tablet 5 mg PO DAILY #90 tabs 05/11/24 Unknown Rx fluticasone furoate 200 1 inh inhalation DAILY #3 device 05/11/24 Unknown Rx mcg-vilanterol 25 mcg/dose inhalation powder (Breo Ellipta) hydrochlorothiazide 12.5 mg capsule 12.5 mg PO DAILY #90 caps 05/11/24 Unknown Rx lisinopril 20 mg tablet 20 mg PO QDAY #90 tabs 05/11/24 Unknown Rx montelukast 10 mg tablet 10 mg PO QPM #90 tabs 05/11/24 Unknown Rx phenazopyridine 200 mg tablet 200 mg PO QD-BID PRN pain #10 tabs 05/11/24 Unknown Rx sildenafil (pulm.hypertension) 20 60 mg (3 x 20 mg) PO .biweekly 30 05/11/24 Unknown Rx mg tablet days #24 tabs tamsulosin 0.4 mg capsule 0.4 mg PO DAILY #90 caps 05/11/24 Unknown Rx thyroid (pork) 180 mg tablet 90 mg (1/2 x 180 mg) PO QDAY 30 05/12/24 Unknown Rx ([place] Thyroid) days #15 tabs Allergy/AdvReac Type Severity Reaction Status Date / Time animal dander Allergy Sneezing Verified 07/16/24 16:02 grass pollen Allergy sneezing Verified 07/16/24 16:02 mold Allergy sneezing Verified 07/16/24 16:02 Family History Father , Age 47 Melanoma Cancer Mother Abdominal aortic aneurysm Son Diabetes Surgical History Total knee replacement status H/O colonoscopy h/o deviated septum repair H/O shoulder surgery Social History Smoking Status: Former smoker Tobacco: How many years used: 15 how long ago did patient quit smokin second hand exposure: No alcohol intake: never substance use type: does not use ROS <RAHEL Lopez - Last Filed: 07/16/24 17:08> ROS ED ROS Narrative Constitutional: Negative for fever, chills, weight loss, weakness Eyes: Negative for vision loss, vision change, double vision ENT: Negative for any sore throat, ear pain, congestion Cardiovascular: Negative for any chest pain, tightness, palpitations Respiratory: Negative for any cough, sputum production, hemoptysis, dyspnea, dyspnea on exertion, orthopnea Gastrointestinal: Negative for any nausea, vomiting, diarrhea, constipation, blood in stool, blood in vomit. Positive for lower abdominal pain : Negative for any urinary frequency, dysuria, blood in urine. Positive for u rinary retention Muscle skeletal: Negative for any neck pain, back pain Neurological: Negative for any headache, syncope, dizziness Skin: Negative for any rashes, itching, abrasions, lacerations Psychiatric: Negative for any depression, anxiety, stress, suicidal ideation, homicidal ideation Hematologic: Negative for any excessive bruising, easy bleeding EXAM <RAHEL Lopez - Last Filed: 07/16/24 17:08> Physical Exam Narrative Exam Narrative: Vital signs reviewed. HEET: Head normocephalic atraumatic, TMs clear bilaterally. Posterior pharynx is clear, moist mucous membranes. Nares clear bilaterally. Neck: Supple with no lymphadenopathy or tenderness. No signs of meningismus. Cardiac: Regular rate and rhythm no murmurs gallops or rubs, equal peripheral pulses bilaterally. Respiratory: Lungs clear to auscultation bilaterally. No chest tenderness. Abdomen: Soft. No abdominal bruit or pulsatile masses. No hepatosplenomegaly. Positive for lower abdominal distention, slight pain. Extremities: No peripheral edema, no signs of gross trauma or deformity. Active full range of motion of all extremities. Patient's left knee was recently operated and covered Neuro: Cranial nerves II through XII intact, no focal neurological deficits. Skin: Clean dry and intact with no rash, purpura, petechiae, vesicles or pustules. Backs/flank: No CVA tenderness, no midline spinal tenderness, no deformity. Psych: Normal mood and affect. No SI, HI or acute psychosis. Const Vital Signs: 07/16/24 16:02 07/16/24 16:53 Temperature 96.1 F L 97.4 F L Temperature Source Temporal Pulse Rate 81 75 Respiratory Rate 15 18 Blood Pressure 152/79 H 131/66 H Blood Pressure Mean 103 87 Pulse Ox 97 97 Oxygen Delivery Method Room Air <Dr. Joao Carrizales MD - Last Filed: 07/16/24 16:44> Physical Exam Const Vital Signs: 07/16/24 16:02 07/16/24 16:53 Temperature 96.1 F L 97.4 F L Temperature Source Temporal Pulse Rate 81 75 Respiratory Rate 15 18 Blood Pressure 152/79 H 131/66 H Blood Pressure Mean 103 87 Pulse Ox 97 97 Oxygen Delivery Method Room Air MDM <RAHEL Lopez - Last Filed: 07/16/24 17:08> MDM Treatment and Re-Evaluation :: Differential diagnosis includes however is not limited to: Urinary retention secondary to surgery, BPH, UTI, dehydration Patient appears generally well, vital signs are stable, patient is nontoxic- appearing. Presenting to the emergency department for lower abdominal distent ion, difficulty urinating. Patient did undergo a full left knee replacement by Dr. Sorto. This was successful. However patient could not urinate. I did speak with Dr. Olguin who will come down and see the patient in the emergency department. Urologist was in the department, they did place a Sands catheter. 1000 cc was expelled. Patient feels much better. Patient will go home with the Sands catheter as well as a leg bag. Patient will follow-up closely with his urologist. All questions were answered, stable for discharge <Dr. Joao Carrizales MD - Last Filed: 07/16/24 16:44> [facility] Narrative Medical decision making narrative: I have personally performed a face to face assessment of the patient and have reviewed the MICH Note. I performed a substantive portion of the visit including all aspects of the following. My arevalo findings include: History is 74-year-old male status post left total knee replacement done at outpatient surgery center today. He had spinal anesthesia. He is now unable to urinate. They tried to place a Sands catheter at the surgery center and after 2 attempts were unsuccessful. He has a history of enlarged prostate but is never needed surgery or Sands catheter. He was sent to the emergency department after he discussed his care with his urologist who is coming in the place a catheter. Exam is [well-appearing 74-year-old male. Vital signs stable afebrile. H EENT exam unremarkable. Moist with membranes. Normal speech. Neck nontender. Lungs clear. Heart regular rhythm. Abdomen soft nondistended normal bowel sounds without peritoneal signs. He has wraps compression stockings on both lower extremities. He is awake and alert.] Medical Decision Making [we spoke to his urologist Dr. Micah Olguin who is in the emergency department preparing to place his Sands catheter.] Other additions or changes: [None] Discharge Plan Triage Chief Complaint: Complaint ED Midlevel Provider: Saeed Ruiz ED Provider: Joao Carrizales Dx/Rx/DC Orders Clinical Impression: Acute urinary retention, Family history of benign prostatic hyperplasia, History of knee joint replacement Prescriptions: No Action aspirin 325 mg tablet 325 mg PO QDAY (DME) nebulizer tubing and mouth piece Qty: 2 12RF Rx Instructions: As directed for his asthma albuterol sulfate [Ventolin HFA] 90 mcg/actuation HFA aerosol inhaler 2 puff INHALATION Q4H PRN (Reason: shortness of breath or wheezing) Qty: 3 3RF albuterol sulfate 2.5 mg /3 mL (0.083 %) solution for nebulization 2.5 mg INHALATION Q4H PRN (Reason: shortness of breath or wheezing) Qty: 180 3RF amlodipine 10 mg tablet 10 mg PO QDAY Qty: 90 3RF ciprofloxacin HCl 500 mg tablet 500 mg PO BID Qty: 28 1RF finasteride 5 mg tablet 5 mg PO DAILY Qty: 90 3RF fluticasone furoate-vilanterol [Breo Ellipta] 200-25 mcg/dose blister with device 1 inh inhalation DAILY Qty: 3 3RF hydrochlorothiazide 12.5 mg capsule 12.5 mg PO DAILY Qty: 90 3RF lisinopril 20 mg tablet 20 mg PO QDAY Qty: 90 3RF montelukast 10 mg tablet 10 mg PO QPM Qty: 90 3RF phenazopyridine 200 mg tablet 200 mg PO QD-BID PRN (Reason: pain) Qty: 10 12RF sildenafil (pulm.hypertension) 20 mg tablet 60 mg PO .biweekly 30 Days Qty: 24 12RF tamsulosin 0.4 mg capsule 0.4 mg PO DAILY Qty: 90 3RF [place] Thyroid 180 mg tablet 90 mg PO QDAY 30 Days Qty: 15 1RF Primary Care Provider: Marlene Mathur NP Referrals: Will Olguin MD [Med Staff - Active Staff] - Marlene Mathur NP, ACCOUNTING RECRUITER-C [Primary Care Provider] - Print Language: Tamazight Disposition Disposition: Home, Self Care
[2024-07-16 16:36] VITALS: BMI 30.1
--- NOTE | 2024-07-16 16:47 | CON.PCM.UR_ITS ---
Assessment & Plan Assessment/Plan (1) BPH (benign prostatic hyperplasia): QUALIFIERS: Lower urinary tract symptom presence: unspecified whether lower urinary tract symptoms present Qualified Code(s): N40.0 - Benign prostatic hyperplasia without lower urinary tract symptoms PLAN: BPH with obstruction urinary retention Sands catheter placed in the ER he will go home with the Sands follow-up next week in my office for catheter removal he was instructed to resume his Flomax daily. HPI Consult Data Date of Consult: 07/16/24 HPI Narrative Reason for Consultation: Urinary retention after total knee replacement HPI Narrative: REBEL BURT, is a 74 M who presents to the emergency room he had a total knee replacement done this morning at an outpatient surgery center was not able to urinate. He did stop his Flomax prior to surgery. I have not seen the patient in over a year for his prostate problems he does have a history of a very large prostate. In the past he took Flomax as needed for his flow which been working for him. The surgery center attempted to place a Sands catheter but they met resistance with such a large prostate after multiple tries a send him to the emergency room. Here in the emergency room was able to use a Glidewire advantage into the prostate through the prostate into the bladder and then over the Glidewire I used a 18 [place] upper mattaponi tip catheter was able to get into the bladder and drained over 500 cc of clear yellow urine he will go home with a Sands catheter to leg bag and gravity let large bag and then he can follow-up in my office next week for catheter removal I recommended that he restart his Flomax and stay on Flomax until the catheter is removed. [facility] Medical History Essential (primary) hypertension Bilateral hearing loss due to cerumen impaction Wheezing Acute asthma Hypothyroidism (acquired) Thyroid disease Skin cancer Prostate disease HTN (hypertension) Hearing problem Seasonal allergies Home Medications ?Medication ?Instructions ?Recorded ?Last Taken ?Type aspirin 325 mg tablet 325 mg PO QDAY 10/31/17 Unknown History nebulizer tubing and mouth piece #2 ea 04/03/21 Unknown Rx albuterol sulfate 2.5 mg/3 mL 2.5 mg (3 mL) inhalation Q4H PRN 05/11/24 Unknown Rx (0.083 %) solution for nebulization shortness of breath or wheezing #180 mL albuterol sulfate 90 mcg/actuation 2 puff inhalation Q4H PRN 05/11/24 Unknown Rx aerosol inhaler (Ventolin HFA) shortness of breath or wheezing #3 ea amlodipine 10 mg tablet 10 mg PO QDAY #90 tabs 05/11/24 Unknown Rx ciprofloxacin HCl 500 mg tablet 500 mg PO BID prostatitis #28 tabs 05/11/24 Unknown Rx finasteride 5 mg tablet 5 mg PO DAILY #90 tabs 05/11/24 Unknown Rx fluticasone furoate 200 1 inh inhalation DAILY #3 device 05/11/24 Unknown Rx mcg-vilanterol 25 mcg/dose inhalation powder (Breo Ellipta) hydrochlorothiazide 12.5 mg capsule 12.5 mg PO DAILY #90 caps 05/11/24 Unknown Rx lisinopril 20 mg tablet 20 mg PO QDAY #90 tabs 05/11/24 Unknown Rx montelukast 10 mg tablet 10 mg PO QPM #90 tabs 05/11/24 Unknown Rx phenazopyridine 200 mg tablet 200 mg PO QD-BID PRN pain #10 tabs 05/11/24 Unknown Rx sildenafil (pulm.hypertension) 20 60 mg (3 x 20 mg) PO .biweekly 30 05/11/24 Unknown Rx mg tablet days #24 tabs tamsulosin 0.4 mg capsule 0.4 mg PO DAILY #90 caps 05/11/24 Unknown Rx thyroid (pork) 180 mg tablet 90 mg (1/2 x 180 mg) PO QDAY 30 05/12/24 Unknown Rx (Procious Thyroid) days #15 tabs Allergy/AdvReac Type Severity Reaction Status Date / Time animal dander Allergy Sneezing Verified 07/16/24 16:02 grass pollen Allergy sneezing Verified 07/16/24 16:02 mold Allergy sneezing Verified 07/16/24 16:02 Family History Father , Age 47 Melanoma Cancer Mother Abdominal aortic aneurysm Son Diabetes Surgical History Total knee replacement status H/O colonoscopy h/o deviated septum repair H/O shoulder surgery Social History Smoking Status: Former smoker Tobacco: How many years used: 15 how long ago did patient quit smokin second hand exposure: No alcohol intake: never substance use type: does not use ROS Constitutional Constitutional: Denies chills, fever(s) or malaise Eyes Eyes: Denies blurry vision or change in vision ENT HEENT: Reports none Cardiovascular Cardiovascular: Denies chest pain or palpitations Respiratory/Chest Respiratory/Chest: Denies cough or shortness of breath with exertion Gastrointestinal Gastrointestinal: Denies abdominal pain, constipation or diarrhea Musculoskeletal Musculoskeletal: Denies back pain, joint stiffness or joint swelling Integumentary Integumentary: Denies dry skin, jaundice, lesions or rash Neurologic Neurologic: Denies confusion, syncope or weakness Psychiatric Psychiatric: Reports none; Denies anxiety or depression Endocrine Endocrinology: Denies excessive sweating, fatigue or flushing Hematologic/Lymphatic Hematologic/Lymphatic: Denies anemia, easy bleeding or easy bruising Physical Exam Const alert and oriented x3 General Appearance: cooperative HEENT normocephalic, head/scalp atraumatic, EAC's normal and TM's normal bilaterally Eyes PERRL and EOMs intact bilaterally Pupil: sluggish Neck no lymphadenopathy, supple and no JVD General: trachea midline Lymph Lymphatic: no lymphadenopathy noted, lymphedema and lymphadenopathy Resp normal respiratory effort, normal air movement and clear to auscultation bilaterally Cardio regular rate, regular rhythm and peripheral pulses 2+ throughout GI soft to palpation, non-tender and non-distended Extremity normal capillary refill and no clubbing, cyanosis or edema General Extremity: no tenderness to palpation of joints or extremities Skin no rashes or lesions noted General Skin Exam: turgor normal Lesions: no lesions Rashes: no rashes Neuro CN's II-XII intact bilaterally Speech: speech normal Motor Exam: strength 5/5 throughout; Negative for general weakness Psych thought process normal, cooperative and affect normal Appearance: appropriate Medical Records Data Attestation: I reviewed the patient's medical records
[2024-07-16 16:53] VITALS: BP 131/66; PULSE 75; RESP 18; TEMP 36.3; O2SAT 97
== END 2024-07-16 17:22 | disposition home or self-care (01) ==
PROVIDERS: Emergency Provider Emergency Medicine; PCP Nurse Practitioner; Visit Provider Emergency Medicine
DX: N40.1 Benign prostatic hyperplasia with lower urinary tract symptoms (principal); R33.8 Other retention of urine; I10 Essential (primary) hypertension; Z87.891 Personal history of nicotine dependence; E78.5 Hyperlipidemia, unspecified; J45.909 Unspecified asthma, uncomplicated; Z96.652 Presence of left artificial knee joint; E03.9 Hypothyroidism, unspecified; Z98.890 Other specified postprocedural states
CPT/HCPCS: 99282; C1769